=== PATIENT | male | born 1950 | race Caucasian/White ===

== ENCOUNTER → 2025-02-20 | Outpatient (CLI) | payer MEDICARE ==
--- NOTE | 2025-02-20 15:40 | XR ---
EXAMINATION TYPE: XR chest 2V DATE OF EXAM: 02/20/2025 CLINICAL INDICATION: Male, 74 years old with history of R05.3 CHRONIC COUGH, TECHNIQUE: Frontal and lateral views of the chest are obtained. COMPARISON: Chest x-ray September 22, 2014 FINDINGS: There is no focal air space opacity, pleural effusion, or pneumothorax seen. The cardiac silhouette size is stable and upper limits of normal. The osseous structures are intact. IMPRESSION: No acute pulmonary infiltrate. [facility], , 02/20/2025 3:38 PM
== END | disposition home or self-care (01) ==
LOC: RADXRMAIN 15:12
PROVIDERS: ATTEND Internal Medicine
DX: R05.3 Chronic cough (principal); R06.02 Shortness of breath
CPT/HCPCS: 71046